=== PATIENT | female | born 1980 | race Caucasian/White ===

== ENCOUNTER 2017-01-02 07:38 | Inpatient (IN) | payer OTHER ==
[~2017-01-02] VITALS: Ht 162.6 cm; Wt 118.2 kg
[2017-01-02 09:27] VITALS: BP 129/64
[2017-01-02] MEDS ORDERED: OXYTOCIN 30U/ 0.9% NaCL 500ML 500 ML IV ONE (10:03)
[2017-01-02] MEDS ORDERED: OXYTOCIN 30U/ 0.9% NaCL 500ML 500 ML IV PRN (10:03)
[2017-01-02] MEDS: D5%-LACTATED RINGERS 1,000 ML IV SCH ×2 (10:03→18:03)
[2017-01-02] MEDS ORDERED: PREN1TAB60 PO (10:10)
[2017-01-02] MEDS ORDERED: OXYTOCIN 30U/ 0.9% NaCL 500ML 500 ML ONE ×2 (10:15→19:43)
[2017-01-02] MEDS ORDERED: MISOPROSTOL 25 MCG TABLET ONE ×3 (10:15→14:55)
[2017-01-02] MEDS ORDERED: LIDOCAINE 1%, 20ML ONE (10:17)
[2017-01-02] MEDS ORDERED: MISOPROSTOL 200 MCG TABLET ONE (10:17)
[2017-01-02] MEDS: LACTATED RINGERS 1,000 ML IV SCH ×2 (10:19→16:10)
[2017-01-02] MEDS ORDERED: FENTANYL PF 100 MCG/2ML IVPush PRN (10:30)
[2017-01-02] MEDS ORDERED: SODIUM CITRATE/CITRIC ACID 30 ML UDC PO PRN (10:30)
[2017-01-02] MEDS ORDERED: FENTANYL PF 100 MCG/2ML IV PRN (10:30)
[2017-01-02] MEDS ORDERED: TERBUTALINE 1 MG/ML, 1ML IVPush PRN (10:30)
[2017-01-02] MEDS ORDERED: ONDANSETRON 2MG/ML, 2ML IVPush PRN (10:30)
[2017-01-02] MEDS ORDERED: MISOPROSTOL 25 MCG TABLET VG PRN (10:30)
[2017-01-02] MEDS ORDERED: METOCLOPRAMIDE 5 MG/ML, 2ML IVPush PRN (10:30)
[2017-01-02] MEDS ORDERED: FENTANYL/BUPIV./NS/PF 250 ML EPIDCONT SCH ×2 (16:25→17:02)
[2017-01-02] MEDS ORDERED: LACTATED RINGERS 1,000 ML IV SCH ×2 (16:25→17:02)
[2017-01-02] MEDS ORDERED: BUPIVACAINE/PF 0.25% ONE (16:26)
[2017-01-02] MEDS ORDERED: FENTANYL/BUPIV./NS/PF 250 ML EPIDCONT ONE (16:26)
[2017-01-02] MEDS ORDERED: NALOXONE 0.4 MG/ML, 1ML IVPush PRN ×2 (16:30→17:30)
[2017-01-02] MEDS ORDERED: LACTATED RINGERS 1,000 ML IVBOLUS PRN ×2 (16:30→17:30)
[2017-01-02] MEDS ORDERED: EPHEDRINE 50 MG/ML, 1ML IVPush PRN ×2 (16:30→17:30)
[2017-01-02] MEDS ORDERED: HYDROcodone/APAP 5/325 TABLET PO PRN ×2 (19:30)
[2017-01-02] MEDS ORDERED: ONDANSETRON 2MG/ML, 2ML IV PRN (19:30)
[2017-01-02] MEDS ORDERED: DOCUSATE 100 MG CAPSULE PO PRN (19:30)
[2017-01-02] MEDS ORDERED: CALCIUM CARBONATE 500 MG TAB.CHEW PO PRN (19:30)
[2017-01-02] MEDS ORDERED: MISOPROSTOL 200 MCG TABLET PR PRN (19:30)
[2017-01-02] MEDS: OXYTOCIN 30U/ 0.9% NaCL 500ML 500 ML IV SCH (19:46)
[2017-01-02 21:20] VITALS: BP 105/62
[2017-01-03 01:50] VITALS: BP 100/68
[2017-01-03] MEDS: IBUPROFEN 600 MG TABLET PO PRN ×2 (01:55→08:40)
[2017-01-03 04:26] VITALS: BP 119/65
[2017-01-03] MEDS: OXYTOCIN 30U/ 0.9% NaCL 500ML 500 ML IV SCH ×2 (05:03→14:13)
[2017-01-03] MEDS ORDERED: PRENATAL VIT/IRON/FA 1 EACH TABLET PO SCH (09:00)
[2017-01-03 09:16] VITALS: BP 112/70
[2017-01-03] MEDS ORDERED: HYDR-3240 PO (09:43)
[2017-01-03] MEDS ORDERED: IBUP800T PO (09:43)
[2017-01-03 12:20] VITALS: BP 115/70
[2017-01-03 15:23] VITALS: BP 110/70
== END 2017-01-03 17:41 | disposition home or self-care (01) | DRG 775 ==
LOC: LDIP 09:13 → 2NW 20:57
PROVIDERS: ADMIT Obstetrics & Gynecology; ATTEND Obstetrics & Gynecology
PROC: 10E0XZZ Delivery of Products of Conception, External Approach (ICD-10-PCS; principal; 2017-01-02)
PROC: 00HU33Z Insertion of Infusion Device into Spinal Canal, Percutaneous Approach (ICD-10-PCS; 2017-01-02)
PROC: 3E0R3CZ (ICD-10-PCS; 2017-01-02)
DX: O36.5990 Maternal care for other known or suspected poor fetal growth, unspecified trimester, not applicable or unspecified (principal); Z68.41 Body mass index [BMI] 40.0-44.9, adult; O99.214 Obesity complicating childbirth; E66.9 Obesity, unspecified; Z37.0 Single live birth; Z3A.38 38 weeks gestation of pregnancy
CPT/HCPCS: 36415; 85025; 86850; 86900; J3490; J2590; J3010; J7120